=== PATIENT | female | born 1935 | race Caucasian/White ===

== ENCOUNTER 2017-04-06 16:42 | Inpatient (IN) | payer OTHER ==
[~2017-04-06] VITALS: Ht 149.9 cm; Wt 74.2 kg
--- NOTE | ~2017-04-06 | H ---
[facility] [place] [address] HISTORY AND PHYSICAL Name: EILEEN JEFFREY Room #: 206-P ADM IN M.R.#: [id number] Admission: 04/06/17 Attend Phys: Kristian Kim MD Discharge: Date of : 35 Report #: [id number] THIS REPORT FOR: //name// CC: Jaye Kim DATE OF SERVICE: 04/07/2017 ATTENDING PHYSICIAN: Dr. Kim. PRIMARY CARE PHYSICIAN: Dr. Jaye Angel. CHIEF COMPLAINT: Rash and weakness. HISTORY OF PRESENT ILLNESS: The patient is an 82-year-old female who has a history of a rash that she developed about 5 months ago. The rash is mainly in her chest, back and upper extremities. She also has associated weakness that developed in about the last 6 weeks. The weakness is mainly in her shoulder and upper arms as well as in her hip flexor. The weakness has been progressively getting worse. She has been seen by her primary care provider regarding the weakness and the rash about little over a month ago. She was started on prednisone. She initially was on a short prednisone taper and did not have any improvement and then her PCP put her on some higher dose prednisone that she just finished. She thinks that the steroids actually made her feel weaker and they really did not seem to improve the rash. She initially had some elevated muscle proteins as well and those did decrease with the steroids, but according to her records, the proteins are again elevated since being off the prednisone. She also has had progressive trouble swallowing. 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 This has mainly only affected her speech and she says her voice has been weak. Her last injection was in October of this year prior to developing the initial rash. After the rash started, she was told not to get any further injections as she was being evaluated for the rash. She said in the last 3 weeks, it feels like her throat has swollen to the point that she cannot eat or drink any solids or liquids. She feels like she chokes and the food does not go all the way down and then she coughs or vomits it right back up. She has lost at least 15 pounds. She has not been on any new medications. Because of the weakness, she was taken off her statin therapy and did not have much change in her symptoms. She went back to her primary care provider today who ended up sending her to the ER in [place], [place]. 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 The patient denies any history of autoimmune problems. She denies recent fevers. She reports having a very bad respiratory viral about a year ago with high fevers, but no recent fevers. She denies any chest pain or shortness of breath or any history of coronary artery disease. She is accompanied by her spouse and son who are both very concerned that she is [address] [address] HISTORY AND PHYSICAL Name: EILEEN JEFFREY Room #: 206-P [facility] IN .R.#: [id number] Admission: 04/06/17 Attend Phys: Kristian Kim MD Discharge: Date of : 35 Report #: [id number] progressively being getting weaker and unable to eat. PAST MEDICAL HISTORY: Arthritis, hypertension, hypothyroidism, hyperlipidemia, spastic dysphonia. PAST SURGICAL HISTORY: Appendectomy, cholecystectomy, fibroid tumors from the breast removed, multiple botox injections to vocal cords over the last 20 years. ALLERGIES: CLAVULANIC ACID AND SULFA, unknown reactions. HOME MEDICATIONS: Alprazolam 0.25 mg t.i.d. p.r.n., triamterene/hydrochlorothiazide 75/50 one tab daily, omeprazole 20 mg p.o. daily, estradiol 1 mg p.o. daily, levothyroxine 75 mcg daily. SOCIAL HISTORY: The patient is a never smoker. She does drink an occasional glass of wine. Denies any drug use. She lives at home with her spouse. FAMILY HISTORY: Her mother had rheumatoid arthritis, but she ended up dying of a heart attack. Her father from natural causes. REVIEW OF SYSTEMS: Twelve point review of systems was reviewed with the patient, otherwise negative unless stated in the HPI. PHYSICAL EXAMINATION: GENERAL: The patient is an alert, ill-appearing female, in no acute distress. VITAL SIGNS: Temperature 36.9, heart rate 79, respirations 17, blood pressure 131/78, oxygen 93% on room air. HEENT: PERRLA. Sclerae are nonicteric. Oral mucosa is pink and moist. NECK: Supple. She does have full range of motion. She does have some left-sided cervical lymphadenopathy, but lymph nodes are nontender. RESPIRATORY: Breath sounds are clear bilaterally. No wheezing or rhonchi. Breathing is nonlabored. ABDOMEN: Soft and nondistended with positive bowel sounds. Nontender. CARDIAC: Normal S1, S2. No murmurs, rubs or gallops. VASCULAR: 2+ bilateral lower extremity edema. Pedal pulses are 2+. NEUROLOGIC: The patient is alert and oriented x 3. Her voice is weak. She is able to follow commands. She does have significant weakness of her shoulder and upper arms. She is able to raise her hands up to 90 degrees at the elbow, but she is unable to lift her entire arm off the bed when using her shoulder bilaterally. She is unable to perform a straight leg raise, but she is able to bend her legs at the knee. Sensation is intact in all 4 extremities. SKIN: She does have erythematous rash what appears to be like a V neck pattern on her anterior chest. It is diffuse through her back and in the dorsal side of her both arms. There are also some patches of erythema on her both knees. There is a small dry wound on top of her left ear. There is also a small wound between her buttocks. [address] [address] HISTORY AND PHYSICAL Name: EILEEN JEFFREY Room #: 206-P ADM IN M.R.#: [id number] Admission: 04/06/17 Attend Phys: Kristian Kim MD Discharge: Date of : 35 Report #: [id number] [facility] DI[facility]NO[facility]: Blood work done at [place] showed a WBC of 10.8, hemoglobin 15.9, platelets 209. Sodium 131, potassium 3.0, BUN 34, creatinine 1.4, glucose 110. Magnesium 2.4, AST 134, ALT 64 and CK 861. Troponin 0.29 and BNP 4810. INR 1.15. Chest x-ray showed mild bibasilar subsegmental atelectasis, but no focal airspace consolidation. There was also some thoracic degenerative changes. ASSESSMENT AND PLAN: 1. Rash and weakness with elevated CRP. 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 She has not had any improvement with oral steroids. She was given a dose of IV Decadron en route to the hospital tonight. We will hold off on any further steroids and have Rheumatology evaluate and continue with symptomatic care, provide Benadryl p.r.n. 2. Dysphagia. This may also be due to myositis. We will have ENT evaluate and keep her on clear liquids only with aspiration precautions. 3. Elevated troponin. The patient is denying any chest pain. This may be the effect of myositis affecting her heart. She also has an elevated BNP, but does not show any signs of acute fluid overload. Cardiology is consulted. She did receive aspirin this evening, check an echo in the morning. Continue to monitor on telemetry. 4. Hypokalemia. This will be replaced. Follow labs. 5. Acute kidney injury versus chronic kidney disease. We do not have any baseline creatinine to compare. We will gently hydrate and follow labs. 6. Transaminitis. Again, this may be due to myositis. She does not have any abdominal pain. 7. Hypothyroidism. Hold home meds until swallow eval is complete. 8. Deep venous thrombosis prophylaxis. Place SCDs. We will continue to follow the patient closely throughout the hospitalization and make changes based on clinical status. <ELECTRONICALLY SIGNED> By: SHAWN Silverio 04/07/17 0942 0554 0659 SHAWN Silverio /nt
--- NOTE | ~2017-04-06 | EKG ---
[place] [address] [facility] [place] [address] ELECTROCARDIOGRAM REPORT Name: EILEEN JEFFREY Room #: 206-P ADM IN M.R.#: [id number] Admission: 04/06/17 Attend Phys: Kirstian Kim MD Discharge: Date of : 35 Report #: [id number] THIS REPORT FOR: //name// [facility] Test Date: 2017-04-15 Test Time: 06:12:55 Pat Name: EILEEN JEFFREY Department: Room: 206 P Gender: F Wholesale Account Manager: KRISSY : 1935 Requested By: Conor Guadalupe Order Number: [id number] MD: Conor Guadalupe Measurements Intervals [place] Rate: 79 P: 30 OK: 150 QRS: -4 QRSD: 79 T: -13 QT: 384 QTc: 441 Interpretive Statements Sinus rhythm Atrial premature complexes in couplets Borderline T abnormalities, diffuse leads Compared to ECG 04/14/2017 06:14:05 Atrial premature complex(es) now present T-wave abnormality still present Electronically Signed On 04-15-2017 9:06:00 DYED RAW STOCK BLOWER FEEDER by Conor Guadalupe [email or web address] <ELECTRONICALLY SIGNED> By: Conor Guadalupe MD 04/15/17905 1 1 Conor Guadalupe MD /EPI
--- NOTE | ~2017-04-06 | EKG ---
[address] [place] [address] ELECTROCARDIOGRAM REPORT Name: EILEEN JEFFREY Room #: 206-P ADM IN M.R.#: [id number] Admission: 04/06/17 Attend Phys: Kristian Kim MD Discharge: Date of : 35 Report #: [id number] THIS REPORT FOR: //name// [facility] Test Date: 2017-04-14 Test Time: 06:14:05 Pat Name: EILEEN JEFFREY Department: Room: 206 P Gender: F Paper Processing Machine Helper: KRISSY : 1935 Requested By: Conor Guadalupe Order Number: [id number] MD: Vinicius Mejia Measurements Intervals [place] Rate: 73 P: 16 MN: 154 QRS: 0 QRSD: 102 T: 3 QT: 334 QTc: 368 Interpretive Statements Sinus rhythm Borderline T wave abnormalities Compared to ECG 04/13/2017 10:18:53 T-wave abnormality now present Atrial fibrillation no longer present Electronically Signed On 04-14-2017 8:21:26 PRODUCTION OPERATIONS INSPECTOR by Vinicius Mejia [email or web address] <ELECTRONICALLY SIGNED> By: Vinicius Mejia MD, [facility] 04/14/17 0821 3 3 Vinicius Mejia MD, [facility] /EPI
--- NOTE | ~2017-04-06 | 2DMMODE ---
[facility] [address] [place] [address] 2 D/M-MODE ECHOCARDIOGRAM Name: RACHELEEILEEN Room #: 206-P ADM IN M.R.#: [id number] Admission: 04/06/17 Attend Phys: Kristian Kim, Discharge: Date of : 35 Date of Service: 04/07/17 1230 Report #: [id number] THIS REPORT FOR: //name// APPROVED REPORT Study performed: 04/07/2017 11:01:06 EXAM: Comprehensive 2D, Doppler, and color-flow Echocardiogram Patient Location: Bedside Room #: 206 Status: routine BSA: 1.59 HR: 75 bpm BP: 135/75 mmHg Other Information Study Quality: Adequate Indications Hypertension/HDD Elivated Troponin 2D Dimensions RVDd: 24.52 mm LVEF(%): 56.79 (>50%) IVSd: 11.79 (7-11mm) LVOT Diam: 16.93 (18-24mm) LVDd: 33.60 mm PWd: 11.32 (7-11mm) Ascending Ao: 27.66 (22-36mm) LVDs: 23.88 (25-40mm) Aortic Root: 27.99 mm IVC: 12.00 mm Sexton's LVEF: 56.79 % Volumes Left Atrial Volume (Systole) Single Plane 4CH: 36.77 mL Single Plane 2CH: 15.14 mL LA ESV Index: 16.00 mL/m2 Aortic Valve AoV Peak Bob.: 1.47 m/s AO Peak Gr.: 8.68 mmHg LVOT Max P.22 mmHg LVOT Max V: 1.14 m/s DARINEL Vmax: 1.74 cm2 Mitral Valve E/A Ratio: 0.6 MV Decel. Time: 248.58 ms [facility] [place] [address] 2 D/M-MODE ECHOCARDIOGRAM Name: EILEEN JEFFREY Room #: 206-P [facility] IN M.R.#: [id number] Admission: 04/06/17 Attend Phys: Kristian Kim, Discharge: Date of : 35 Date of Service: 04/07/17 1230 Report #: [id number] MV E Max Bob.: 0.72 m/s MV A Bob.: 1.19 m/s MV PHT: 72.09 ms IVRT: 143.02 ms Pulmonary Valve PV Peak Bob.: 0.92 m/s PV Peak Gr.: 3.36 mmHg Pulmonary Vein P Vein S: 0.61 m/s P Vein A: 0.33 m/s P Vein D: 0.42 m/s P Vein A Dur.: 96.9 msec P Vein S/D Ratio: 1.45 Tricuspid Valve TR Peak Bob.: 2.51 m/s TR Peak Gr.: 25.26 mmHg PA Pressure: 30.00 mmHg Left Ventricle The left ventricle is normal size. There is normal left ventricular wall thickness. The left ventricular systolic function is normal. The left ventricular ejection fraction is within the normal range. LVEF is 60-65%. Grade I - abnormal relaxation pattern. Right Ventricle The right ventricle is normal size. The right ventricular systolic function is normal. Atria The left atrium size is normal. The right atrium size is normal. Aortic Valve The aortic valve is normal in structure. Aortic valve is calcified. Trace aortic regurgitation. There is no aortic valvular stenosis. Mitral Valve The mitral valve is normal in structure. Trace mitral regurgitation. No evidence of mitral valve stenosis. Tricuspid Valve The tricuspid valve is normal in structure. There is trace tricuspid regurgitation. The right atrial pressure is estimated at mmHg. There is no pulmonary hypertension. [facility] [address] [place] [address] 2 D/M-MODE ECHOCARDIOGRAM Name: EILEEN JEFFREY Room #: 206-P ADM IN .R.#: [id number] Admission: 04/06/17 Attend Phys: Kristian Kim, Discharge: Date of : 35 Date of Service: 04/07/17 1230 Report #: [id number] Pulmonic Valve The pulmonary valve is normal in structure. There is no pulmonic valvular regurgitation. Great Vessels The aortic root is normal in size. IVC is normal in size and collapses >50% with inspiration. Pericardium There is no pericardial effusion. <Conclusion> The left ventricle is normal size. LVEF is 60-65%. Grade I - abnormal relaxation pattern. The right ventricle is normal size. The left atrium size is normal. The aortic valve is normal in structure. Aortic valve is calcified. There is no aortic valvular stenosis. Trace mitral regurgitation. There is trace tricuspid regurgitation. There is no pulmonary hypertension. There is no pericardial effusion. <ELECTRONICALLY SIGNED> By: Kyle Garcia MD, FACC 04/07/17 1230 1230 1230 Kyle Garcia MD, FACC /INF
--- NOTE | ~2017-04-06 | EKG ---
[address] [address] ELECTROCARDIOGRAM REPORT Name: RACHELEEILEEN Room #: 206-P ADM IN M.R.#: [id number] Admission: 04/06/17 Attend Phys: Kristian Kim MD Discharge: Date of : 35 Report #: [id number] THIS REPORT FOR: //name// [facility] Test Date: 2017-04-18 Test Time: 12:09:50 Pat Name: EILEEN JEFFREY Department: Room: 206 Gender: F Dispatcher Tow Truck: Jose FINNEGAN : 1935 Requested By: Conor Guadalupe Order Number: [id number] MD: Conor Guadalupe Measurements Intervals [place] Rate: 91 P: -6 LA: 110 QRS: 0 QRSD: 66 T: 238 QT: 278 QTc: 342 Interpretive Statements Sinus rhythm Borderline short LA interval Low voltage, extremity leads Abnormal T, consider ischemia, diffuse leads Compared to ECG 04/17/2017 09:28:24 T-wave abnormality now present Possible ischemia now present Electronically Signed On 04-18-2017 23:25:00 ICU REGISTERED NURSE by Conor Guadalupe [email or web address] <ELECTRONICALLY SIGNED> By: Conor Guadalupe MD 04/18/17 2325 1209 1209 Conor Guadalupe MD /EPI
--- NOTE | ~2017-04-06 | S ---
[facility] [place] [address] SURGICAL PATH RPT PROCEDURE Name: EILEEN JEFFREY Room #: 206-P ADM IN M.R.#: [id number] Admission: 04/06/17 Date of : 35 Discharge: Report #: [id number] Path Case #: [id number] PATHOLOGY REPORT COLLECTION DATE: 04/12/2017 RECEIVED DATE: 04/12/2017 SUBMITTING PHYS: Dr. Horace Barajas, OTHER PHYS: Dr. Kristian Angel ADDENDUM REPORT (Order Date: 04/15/2017 00:00) ADDENDUM COMMENT: Please see next page for scanned image of report submitted by [facility] ADDENDUM, senior billing consultant pathologist, Stefano Melchor M.D. (GA:dash; d/t: 04/15/2017) ELECTRONICALLY SIGNED BY: Brian Vargas M.D. DATE/TIME:04/15/2017 11:29 SPECIMEN(S) RECEIVED: A.Left deltoid muscle tissue for biopsy * * * * * * * * * * * * FINAL DIAGNOSIS: COMMENT: Please see next page for scanned image of report submitted by [employer] senior billing consultant pathologist, Stefano Melchor M.D. (GA:dash; d/t: 04/14/2017) PATHOLOGIST: Brian Vargas M.D. REPORT ELECTRONICALLY SIGNED BY: Brian Vargas M.D. DATE/TIME: 04/15/2017 08:37 * * * * * * * * * * * * GROSS PATHOLOGY: The specimen is received in fresh (on ice), labeled "Eileen Jeffrey, left deltoid". Received is a segment of red-oneil muscle measuring 1.0 x 1.0 x 0.5 cm in greatest dimensions. The specimen is submitted in 3 separate containers as follows: 1 - a portion of the specimen is wrapped in a saline moistened gauze 2 - a portion of the specimen is submitted in formalin 3 - a portion of the specimen is submitted in glutaraldehyde. The specimen is forwarded in its entirety to [facility] for further [address] [address] SURGICAL PATH RPT PROCEDURE Name: EILEEN JEFFREY Room #: 206-P ADM IN M.R.#: [id number] Admission: 04/06/17 Date of : 35 Discharge: Report #: [id number] Path Case #: [id number] processing with results to follow in an addendum. (CAA; 04/12/2017) CLINICAL HISTORY: Polymyositis INITIAL CPT CODE(S): 88987 Professional and Technical services performed by [facility], [address], [place] [address]. [facility] [address] [place] [address] PHONE: [phone] DIRECTOR: Abel Cid M.D. * * * END OF REPORT * * *
--- NOTE | ~2017-04-06 | HC ---
[facility] [place] [address] CONSULTATION Name: EILEEN JEFFREY Room #: 251-P DIS IN M.R.#: [id number] Admission: 04/06/17 Attend Phys: Kristian Kim MD Discharge: 04/25/17 Date of : 35 Report #: [id number] THIS REPORT FOR: //name// CC: Jaye Kim DATE OF SERVICE: 04/07/2017 HISTORY OF PRESENT ILLNESS: The patient is an 82-year-old white female who was admitted with a rash, which occurred approximately 5 months ago. She has had progressive weakness, primarily proximal, especially her shoulder girdle, and per my review of the records, she was diagnosed with dermatomyositis and has been given high dose corticosteroids. She thinks that the steroids actually made her feel weaker and they really did not seem to improve the rash. She also has had progressive trouble swallowing. She has had a history of spastic dysphonia, for which she was receiving Botox treatments for her vocal cords for the past 20 years. After the rash started, she was told not to get any further injections while she was being evaluated for the rash. She has had problems with increased weakness and difficulty with eating. We are seeing her in rehabilitation medicine consultation. PAST MEDICAL HISTORY: Includes arthritis, hypertension, hypothyroidism, hyperlipidemia, spastic dysphonia. PAST SURGICAL HISTORY: Includes appendectomy, cholecystectomy, fibroid tumors from the breast removed, multiple Botox injections to the vocal cords over the past 20 years. ALLERGIES: CLAVULANIC ACID AND SULFA, UNKNOWN REACTIONS. MEDICATIONS: Please see the full medication listing. SOCIAL HISTORY: She lives in a house with her . No steps. She does not utilize gait aids. Her granddaughter notes she has had difficulty moving both upper extremities with proximal upper extremity weakness. FAMILY HISTORY: Mother apparently had rheumatoid arthritis, but ended up dying of a heart attack. REVIEW OF SYSTEMS: No current complaints of chest pain, shortness of breath or abdominal discomfort. Complains of proximal muscle weakness, especially her upper extremities. Complains of decreased oral intake. Complains of overall generalized weakness. PHYSICAL EXAMINATION: GENERAL: An 82-year-old white female. [facility] [address] [place] [address] CONSULTATION Name: EILEEN JEFFREY Room #: 251-P [facility] IN .R.#: [id number] Admission: 04/06/17 Attend Phys: Kristian Kim MD Discharge: 04/25/17 Date of : 35 Report #: [id number] VITAL SIGNS: Temperature 97.3, pulse 79, respirations 17, blood pressure 150/88. SKIN: The patient has a diffuse confluent rash. It appears to be in a V-neck pattern over her anterior chest, diffuse throughout her back, dorsal side of both arms, patches of erythema on her knees. Facies appeared symmetric. MUSCULOSKELETAL: She has considerable proximal weakness of her shoulders and is unable to lift her arms more than about 60-70 degrees abduction bilaterally. She is unable to hold the arm up when it is passively ranged at the shoulder. Elbow flexion and extension is more of a grade 3+. In the lower extremities, her strength appears a little better at a grade 3+ to 4-. DTRs are trace to 1. ASSESSMENT: An 82-year-old white female with the following problem list: 1. Dermatomyositis per history. She has been on high dose steroids. 2. Significant proximal upper extremity greater than lower extremity weakness. Question if the high dose steroids could have contributed with a subsequent steroid myopathy component. 3. Elevated CRP. 4. Dysphagia. ENT to evaluate. Speech therapy is seeing her and she is currently on nectar-thick liquids. 5. Elevated troponin with Cardiology involved. 6. Acute renal insufficiency superimposed on chronic kidney disease. 7. Transaminitis. Note that this may be due to the myositis. 8. Hypothyroidism. 9. Spastic dysphonia, for which she has had multiple Botox injections for her vocal cords. PLAN: Therapy evaluations are underway. She does have significant proximal upper extremity greater than lower extremity weakness. Note that evaluation is underway with Rheumatology and ENT. We would consider Neurology evaluation as well. Again, I question if she has a steroid myopathy as a co-contributor along with the dermatomyositis. We will see how she does with the therapies. Insurance will need to be checked regarding rehab therapy options as she further medically stabilizes. <ELECTRONICALLY SIGNED> By: Marc Conrad MD 05/27/17 1408 1404 2221 Marc Conrad MD /nt
--- NOTE | ~2017-04-06 | EKG ---
[address] [address] ELECTROCARDIOGRAM REPORT Name: RACHELEEILEEN Room #: 206-P ADM IN M.R.#: [id number] Admission: 04/06/17 Attend Phys: Kristian Kim MD Discharge: Date of : 35 Report #: [id number] THIS REPORT FOR: //name// [facility] Test Date: 2017-04-07 Test Time: 08:33:23 Pat Name: EILEEN JEFFREY Department: Room: 206 P Gender: F Outside Event Sales Specialist: maria dolores : 1935 Requested By: Connie Kidd Order Number: [id number] MD: Conor Guadalupe Measurements Intervals [place] Rate: 124 P: 225 CO: 106 QRS: -36 QRSD: 86 T: 83 QT: 331 QTc: 476 Interpretive Statements Sinus or ectopic atrial tachycardia Left axis deviation Abnormal R-wave progression, late transition Borderline repolarization abnormality No previous ECG available for comparison Electronically Signed On 04-08-2017 8:17:27 BUSINESS CONTINUITY MANAGEMENT DIRECTOR by Conor Guadalupe [email or web address] <ELECTRONICALLY SIGNED> By: Conor Guadalupe MD 04/08/17816 2 2 Conor Guadalupe MD /HANK
--- NOTE | ~2017-04-06 | EKG ---
[address] [address] ELECTROCARDIOGRAM REPORT Name: EILEEN JEFFREY Room #: 206-P ADM IN M.R.#: [id number] Admission: 04/06/17 Attend Phys: Kristian Kim MD Discharge: Date of : 35 Report #: [id number] THIS REPORT FOR: //name// [facility] Test Date: 2017-04-13 Test Time: 10:18:53 Pat Name: EILEEN JEFFREY Department: Room: 206 P Gender: F Licensed Embalmer Supervisor: Jose FINNEGAN : 1935 Requested By: Conor Guadalupe Order Number: [id number] MD: Conor Guadalupe Measurements Intervals [place] Rate: 86 P: [place]: QRS: 5 QRSD: 87 T: 28 QT: 351 QTc: 420 Interpretive Statements Atrial fibrillation Abnormal R-wave progression, early transition Compared to ECG 04/11/2017 07:56:12 No significant changes Electronically Signed On 04-13-2017 15:10:37 LUMBER STICKER by Conor Guadalupe [email or web address] <ELECTRONICALLY SIGNED> By: Conor Guadalupe MD 04/13/17 1510 1018 1018 Conor Guadalupe MD /EPI
--- NOTE | ~2017-04-06 | EKG ---
[address] [address] ELECTROCARDIOGRAM REPORT Name: EILEEN JEFFREY Room #: 251- ADM IN M.R.#: [id number] Admission: 04/06/17 Attend Phys: Kristian Kim MD Discharge: Date of : 35 Report #: [id number] THIS REPORT FOR: //name// [facility] Test Date: 2017-04-23 Test Time: 08:24:27 Pat Name: EILEEN JEFFREY Department: Room: 251 Gender: F Land Leveler: IDA : 1935 Requested By: Kristian Kim Order Number: [id number] MD: Vinicius Mejia Measurements Intervals [place] Rate: 81 P: 61 UT: 177 QRS: 14 QRSD: 80 T: 228 QT: 323 QTc: 375 Interpretive Statements Sinus rhythm Low voltage, extremity leads Repol abnrm, diffuse leads Compared to ECG 04/18/2017 12:09:50 No significant change was found Electronically Signed On 04-24-2017 13:44:45 FOREIGN LANGUAGE TEACHER by Vinicius Mejia [email or web address] <ELECTRONICALLY SIGNED> By: Vinicius Mejia MD, [facility] 04/24/17 1344 0824 0824 Vinicius Mejia MD, [facility] /EPI
--- NOTE | ~2017-04-06 | EKG ---
[address] [address] ELECTROCARDIOGRAM REPORT Name: EILEEN JEFFREY Room #: 206-P ADM IN M.R.#: [id number] Admission: 04/06/17 Attend Phys: Kristian Kim MD Discharge: Date of : 35 Report #: [id number] THIS REPORT FOR: //name// [facility] Test Date: 2017-04-11 Test Time: 07:56:12 Pat Name: EILEEN JEFFREY Department: Room: 206 P Gender: F Pacs Administrator: IDA : 1935 Requested By: Kristian Kim Order Number: [id number] MD: Vinicius Mejia Measurements Intervals [place] Rate: 152 P: [place]: QRS: -7 QRSD: 73 T: 13 QT: 279 QTc: 444 Interpretive Statements Atrial fibrillation with rapid V-rate Borderline low voltage Compared to ECG 04/07/2017 08:33:23 Atrial fibrillation is now present Electronically Signed On 04-11-2017 10:17:55 BET TAKER by Vinicius Mejia [email or web address] <ELECTRONICALLY SIGNED> By: Vinicius Mejia MD, [facility] 04/11/17 1017 0756 0756 Vinicius Mejia MD, [facility] /EPI
--- NOTE | ~2017-04-06 | HC ---
[facility] [place] [address] CONSULTATION Name: EILEEN JEFFREY Room #: 206-P ADM IN M.R.#: [id number] Admission: 04/06/17 Attend Phys: Kristian Kim MD Discharge: Date of : 35 Report #: [id number] THIS REPORT FOR: //name// CC: Jaye Kim DATE OF SERVICE: 04/08/2017 CHIEF COMPLAINT: Gluteal and left ear ulceration. 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 She has been having persistent rash and then some muscle weakness over the last 6 months. She has had progressive weakness and is admitted here for neuro and rheumatological evaluation. She has been having some difficulty swallowing and not been able to eat or drink very much. She was noted to have a small ulceration along the fold of her left ear and on the gluteal region. I have been asked to see her with regard to wound care. PAST MEDICAL HISTORY: Positive for arthritis, hypertension, hypothyroidism, hyperlipidemia and spastic dysphonia. PAST SURGICAL HISTORY: She had had previous cholecystectomy, appendectomy, fibroid tumors. ALLERGIES: SULFA AND CLAVULANIC ACID. MEDICATIONS: Include alprazolam, triamterene/hydrochlorothiazide, omeprazole, estradiol, levothyroxine. SOCIAL HISTORY: She is a nonsmoker. She is , accompanied by her . No history of drug use. FAMILY HISTORY: Positive for history of rheumatoid arthritis in her mother. REVIEW OF SYSTEMS: CONSTITUTIONAL: The patient denies fever, chills or weight loss. NEUROLOGICAL: The patient complains of generalized weakness. Denies numbness, tingling. EYES: The patient denies visual changes, redness, or drainage. ENT: The patient denies earache, nasal drainage or sore throat. CARDIOVASCULAR: The patient denies chest pain, palpitations, diaphoresis. PULMONARY: The patient denies cough, shortness of breath. GASTROINTESTINAL: Does complain of difficulty swallowing. Denies nausea, vomiting or diarrhea. GENITOURINARY: The patient denies frequency or urgency of urination. Denies [facility] [address] [place] [address] CONSULTATION Name: EILEEN JEFFREY Room #: 206-P ADM IN ..#: [id number] Admission: 04/06/17 Attend Phys: Kristian Kim MD Discharge: Date of : 35 Report #: [id number] dysuria. DERMATOLOGIC: The patient complains of diffuse rash as well as is aware of these several small ulcerations that I discussed above. Other systems in a 12-point review of systems are negative. PHYSICAL EXAMINATION: VITAL SIGNS: At this time include temperature 36.4, pulse 66, respiratory rate of 18, blood pressure 132/70. GENERAL: This is a chronically ill-appearing female patient who appears to be in no obvious distress. HEENT: Normocephalic. Nose and throat are clear. Examination of the ears demonstrate a small ulceration along the postauricular fold on the left side. A little bit of fibrin present and is not overtly infected. NECK: Supple. LUNGS: Clear. HEART: Regular rhythm. ABDOMEN: Soft. Bowel sounds present. SKIN: Demonstrates diffuse maculopapular rash across the chest and some of the extremities. Gluteal region demonstrates stage 2 pressure ulcerations to the left gluteal region. Some rash noted there as well. NEUROLOGIC: The patient is alert. She is symmetrical. She has generalized weakness. LABORATORY DATA: Includes white blood cell count 7.7, hemoglobin of 13.6, hematocrit 39.7, platelet count 191,000. Sodium 140, potassium 3.0, chloride 106, CO2 21, BUN 23, creatinine 0.9, calcium is low at 7.4. TSH is 0.2. CLINICAL IMPRESSION: 1. Ulceration to the left ear, etiology indeterminate. 2. Stage II pressure ulcer in the left gluteal region. 3. 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 RECOMMENDATIONS: At this point in time, we will recommend a bordered foam to the gluteal ulceration. We will recommend turning and repositioning while in bed, do topical Polysporin ointment to the left ear ulceration. We are awaiting skin and muscle biopsies. She will obviously need rheumatological input for definitive care of dermatomyositis should that diagnosis be confirmed. She will need also aggressive nutritional support if she is not able to eat or drink on her own and may require a feeding tube. All findings and diagnoses discussed with family at bedside. I appreciate being asked to see her in consultation. <ELECTRONICALLY SIGNED> By: Durga Cano MD 04/12/17 1224 1647 0246 Durga Cano MD /nt
--- NOTE | ~2017-04-06 | EKG ---
[address] [address] ELECTROCARDIOGRAM REPORT Name: EILEEN JEFFREY Room #: 206-P ADM IN M.R.#: [id number] Admission: 04/06/17 Attend Phys: Kristian Kim MD Discharge: Date of : 35 Report #: [id number] THIS REPORT FOR: //name// [facility] Test Date: 2017-04-16 Test Time: 08:01:24 Pat Name: EILEEN JEFFREY Department: Room: 206 P Gender: F Prosthodontist: opal : 1935 Requested By: Conor Guadalupe Order Number: [id number] MD: Conor Guadalupe Measurements Intervals [place] Rate: 80 P: 33 [place]: 137 QRS: -12 QRSD: 77 T: 255 QT: 288 QTc: 333 Interpretive Statements Sinus rhythm Borderline repolarization abnormality Compared to ECG 04/15/2017 06:12:55 Atrial premature complex(es) no longer present T-wave abnormality no longer present Electronically Signed On 04-16-2017 8:31:42 FULFILLMENT ASSOCIATE by Conor Guadalupe [email or web address] <ELECTRONICALLY SIGNED> By: Conor Guadalupe MD 04/16/1731 0 0 Conor Guadalupe MD /EPI
--- NOTE | ~2017-04-06 | S ---
[facility] [place] [address] SURGICAL PATH RPT PROCEDURE Name: EILEEN JEFFREY Room #: 206-P ADM IN M.R.#: [id number] Admission: 04/06/17 Date of : 35 Discharge: Report #: [id number] Path Case #: [id number] PATHOLOGY REPORT COLLECTION DATE: 04/07/2017 RECEIVED DATE: 04/08/2017 SUBMITTING PHYS: Dr. Eyad Paulino OTHER PHYS: Dr. Kristian Kim ADDENDUM REPORT (Order Date: 04/12/2017 00:00) ADDENDUM COMMENT: Please see next page for scanned image of Direct Immunofluorescence report submitted by [facility] pathologist, Elliot Chambers M.D. (SAS:amj; d/t: 04/13/2017) ELECTRONICALLY SIGNED BY: Sarah Hall M.D., Dermatopathologist DATE/TIME:04/13/2017 17:14 SPECIMEN(S) RECEIVED: A.Left upper arm B.Left upper arm-dif * * * * * * * * * * * * FINAL DIAGNOSIS: A. Skin, left upper arm, H and E: - Superficial perivascular dermatitis, interface type (see comment). B. Skin, left upper arm, direct immunofluorescence: - An addendum report will be issued once the report is received from the [facility]. COMMENT: Specimen A from the "left upper arm" was evaluated with additional deeper levels as well as two special stains, both performed with appropriate positive controls, which yielded the following results: PAS-DF: Negative Alcian blue: Positive for dermal mucin Based on the H and E findings, a connective tissue disease such as dermatomyositis versus possibly lupus erythematosus is favored. Please correlate clinically as well as with the results of the direct immunofluorescence. An addendum report will be issued on the findings on direct immunofluorescence of specimen B from the "left upper arm" once the report is received from the [facility]. [facility] [address] [place] [address] SURGICAL PATH RPT PROCEDURE Name: EILEEN JEFFREY Room #: [facility] ADM IN ..#: [id number] Admission: 04/06/17 Date of : 35 Discharge: Report #: [id number] Path Case #: [id number] (SAS:marisa/meryl; 04/13/2017) PATHOLOGIST: Sarah Hall M.D., Dermatopathologist REPORT ELECTRONICALLY SIGNED BY: Sarah Hall M.D., Dermatopathologist DATE/TIME: 04/13/2017 11:25 * * * * * * * * * * * * MICROSCOPIC DESCRIPTION: A: Multiple levels of a bisected punch biopsy of skin show overlying scale crust. The epidermis is atrophic and shows dyskeratotic keratinocytes along the dermal-epidermal junction. There is a superficial perivascular lymphohistiocytic inflammatory cell infiltrate. The dermis appears edematous with marked solar elastosis as well as interstitial dermal mucin. A PAS-D stain for fungus was performed and is negative. An Alcian blue stain was performed and does confirm the presence of interstitial dermal mucin. GROSS PATHOLOGY: A. Received in formalin labeled "Eileen Jeffrey, left upper arm," is a punch biopsy measuring 0.4 x 0.2 x 0.2 cm in greatest dimensions. The epidermal surface is goetz-oneil with no obvious lesion. The margin is inked, and the specimen is bisected and entirely submitted in cassette A1. B. Received in Jose's media, labeled "Eileen Jeffrey, left upper arm", is a punch biopsy of skin measuring 0.2 x 0.2 x 0.2 cm in maximum dimensions. The specimen is forwarded in its entirety for direct immunofluorescence studies. (SDY; 04/08/2017) CLINICAL HISTORY: Rash, weakness Rule out dermatomyosis INITIAL CPT CODE(S): A; 06159, 52091, 51422 B; 05526, 47359, 89702, 42344, 63594 Professional services performed by [facility], [address] [place] [address]. Technical services performed by [facility] at [address] [place] [address]. [facility] [address] [place] [address] PHONE: [phone] DIRECTOR: Abel Cid M.D. [address] [address] SURGICAL PATH RPT PROCEDURE Name: EILEEN JEFFREY Room #: 206-P ADM IN M.R.#: [id number] Admission: 04/06/17 Date of : 35 Discharge: Report #: [id number] Path Case #: [id number] * * * END OF REPORT * * *
--- NOTE | ~2017-04-06 | HC ---
[facility] [place] [address] CONSULTATION Name: EILEEN JEFFREY Room #: 206-P ADM IN M.R.#: [id number] Admission: 04/06/17 Attend Phys: Kristian Kim MD Discharge: Date of : 35 Report #: [id number] THIS REPORT FOR: //name// CC: Jaye Stanley Kim DATE OF SERVICE: 04/08/2017 REFERRING PROVIDER: Juan Khan MD. REASON FOR CONSULTATION: Dermatomyositis, request for muscle biopsy. HISTORY OF PRESENT ILLNESS: The patient is an 82-year-old female who initially presented to a hospital in [place], [place] secondary to a 5 month history of rash and weakness that has progressively worsened. Recently, she has been having difficulty swallowing as well as moving her extremities and upon presentation to the outside hospital, was noted to have an elevated troponin of 0.48. The patient was extremely tachycardic and as such was transferred here to [facility] for further evaluation. The patient has been treated with high dose steroids for her reported diagnosis of dermatomyositis, which she states helped to some degree. As she is being seen by Rheumatology, a request was made for a muscle biopsy for pathologic diagnosis. PAST MEDICAL HISTORY: Hypertension, GERD, hypothyroidism, anxiety, spastic dysphonia and arthritis. PAST SURGICAL HISTORY: She has undergone hysterectomy, appendectomy, cholecystectomy, fibroid tumor removal from her breast as well as multiple Botox injections to her vocal cords. MEDICATIONS: Synthroid, Xanax, Estrace, omeprazole, triamterene/hydrochlorothiazide. ALLERGIES: CLAVULANIC ACID AND SULFA. FAMILY HISTORY: Reviewed and noncontributory. SOCIAL HISTORY: The patient denies tobacco and illicit drug use. Drinks alcohol only rarely and never to excess. REVIEW OF SYSTEMS: GENERAL: The patient denies nocturnal fevers or chills. HEENT: No change in vision, change in hearing. NECK: No swelling or difficulty swallowing. HEART: No chest pain or palpitations. LUNGS: No cough or shortness of breath. [facility] [address] [place] [address] CONSULTATION Name: EILEEN JEFFREY Room #: 206-[facility] IN M.R.#: [id number] Admission: 04/06/17 Attend Phys: Kristian Kim MD Discharge: Date of : 35 Report #: [id number] ABDOMEN: No nausea, no vomiting. GENITOURINARY: No dysuria or hematuria. ENDOCRINE: No polyuria, polydipsia. HEMATOLOGIC: No history of bleeding or easy bruising. EXTREMITIES: Significant history of weakness, but no limited range of motion. NEUROLOGIC: No history of syncope or near syncopal episodes. SKIN AND INTEGUMENT: No prior history of abnormal lesions or moles. PSYCHIATRIC: Significant for anxiety, but no depression. PHYSICAL EXAMINATION: VITAL SIGNS: Temperature 97.8, pulse 69, respirations 18, blood pressure 134/83. She stands 4 feet 11 inches tall and weighs 147 pounds. Generally, arousable, in no acute distress. HEENT: Normocephalic, atraumatic. Pupils are equal, round, reactive to light. NECK: Supple, without lymphadenopathy. Trachea is midline. HEART: Tachycardic, but regular rhythm. LUNGS: Clear to auscultation bilaterally. ABDOMEN: Soft, nontender, nondistended. GENITOURINARY: Normal external female genitalia. EXTREMITIES: No clubbing, cyanosis or edema. NEUROLOGIC: Cranial nerves 2-12 are grossly intact. PSYCHIATRIC: Normal mood and affect. SKIN AND INTEGUMENT: Stage II pressure ulcer to the left gluteal region. LABORATORY AND X-RAY DATA: CBC showed a white blood cell count of 7.7 thousand, hemoglobin 13.6, platelets 191,000. Creatinine is 0.9, albumin was 2.2. Liver function, enzymes normal. BNP was elevated at 5698. Echocardiogram shows an ejection fraction of 60-65%, swallow study shows laryngeal penetration and aspiration. ASSESSMENT AND PLAN: An 82-year-old female with a concern for possible dermatomyositis with worsening rash and progressive weakness as well as overt dysphagia for which she failed her swallow test. The patient is being evaluated by Cardiology for an elevated troponin. The patient is currently n.p.o. due to her failing the swallow test and a request was made for muscle biopsy at this time. PLAN: We will plan to proceed with muscle biopsy on Tuesday in the operating room as it is a holiday weekend and this is not an emergent case. In addition, the patient would likely benefit from a PEG tube placement for enteral nutrition. However, she would like to hold off at the present time if at all possible. I think it is reasonable to obtain a diagnosis from the muscle biopsy prior to proceeding with a PEG tube if warranted at that time, once appropriate therapy has been initiated for underlying disorder. [facility] [address] [place] [address] CONSULTATION Name: EILEEN JEFFREY Room #: 206-P ADM IN M.R.#: [id number] Admission: 04/06/17 Attend Phys: Kristian Kim MD Discharge: Date of : 35 Report #: [id number] I sincerely appreciate this consult. We will follow along and leave any further recommendations in the patient's chart as appropriate. <ELECTRONICALLY SIGNED> By: Ceasar Romero MD, FACS 04/09/17 1036 06 0350 Ceasar Romero MD, FACS /nt
--- NOTE | ~2017-04-06 | EKG ---
[address] [address] ELECTROCARDIOGRAM REPORT Name: RACHELEEILEEN Room #: 206-P ADM IN M.R.#: [id number] Admission: 04/06/17 Attend Phys: Kristian Kim MD Discharge: Date of : 35 Report #: [id number] THIS REPORT FOR: //name// [facility] Test Date: 2017-04-17 Test Time: 09:28:24 Pat Name: EILEEN JEFFREY Department: Room: 206 P Gender: F Hooker Laster: JOHN : 1935 Requested By: Conor Guadalupe Order Number: [id number] MD: Conor Guadalupe Measurements Intervals [place] Rate: 83 P: 15 PA: 130 QRS: -13 QRSD: 72 T: 236 QT: 286 QTc: 336 Interpretive Statements Sinus rhythm Borderline low voltage, extremity leads Borderline repolarization abnormality Compared to ECG 04/16/2017 08:01:24 No significant changes Electronically Signed On 04-17-2017 15:53:25 ACCOUNTS RECEIVABLE COORDINATOR by Conor Guadalupe [email or web address] <ELECTRONICALLY SIGNED> By: Conor Guadalupe MD 04/17/17 1553 0928 0928 Conor Guadalupe MD /HANK
--- NOTE | ~2017-04-06 | HC ---
[facility] [place] [address] CONSULTATION Name: EILEEN JEFFREY Room #: 251-P ADM IN M.R.#: [id number] Admission: 04/06/17 Attend Phys: Kristian Kim MD Discharge: Date of : 35 Report #: [id number] THIS REPORT FOR: //name// CC: Jaye Kim REASON FOR CONSULTATION: I was asked to evaluate concerning respiratory failure with bilateral pulmonary infiltrates in the setting of dermatomyositis and immunosuppression. HISTORY OF PRESENT ILLNESS: The patient was an 82-year-old admitted on 04/06/2017 who has had ongoing rash for the last 6 months. This has been associated with generalized weakness. She has been on prednisone for the rash, on and off since September. Subsequently, has not improved and has had progressive weakness. In addition, she has had some difficulty swallowing with a diagnosis of spastic dysphonia in the past that she had received Botox injections for. She had a muscle biopsy performed and was seen by Rheumatology who diagnosed dermatomyositis. Since the diagnosis, she has been placed on immunoglobulin. She has received several infusions. She had a video swallow, which showed aspiration risk and a PEG tube was recently placed. In addition, she has had atrial fibrillation and blood loss anemia. She was treated for Enterobacter urinary tract infection with ceftazidime. She has been on that for the last 3 days. This morning she developed acute onset of shortness of breath associated with cough. She is very weak. No fever. Hemodynamically has remained stable. Went from room air now on 30% Ventimask. ABGs on 3 liters showed a pO2 of 48, pCO2 of 25, pH 7.5, lactate of 3.3. She is unable to cough up any sputum. She is incontinent of dark stool. REVIEW OF SYSTEMS: There has been no hemoptysis and no blood from her PEG site. ALLERGIES: AUGMENTIN, SULFA. MEDICATIONS: Ceftazidime. PAST MEDICAL HISTORY: Arthritis, hypertension, hypothyroidism, hyperlipidemia, spastic dysphonia, appendectomy, cholecystectomy, fibrocystic breast disease. FAMILY HISTORY: Noncontributory. SOCIAL HISTORY: Nonsmoker, no significant alcohol intake. REVIEW OF SYSTEMS: Negative other than as described above. She has had a left upper arm muscle biopsy. Also has indwelling Mello catheter, PEG tube and a left upper extremity PICC. PHYSICAL EXAMINATION: VITAL SIGNS: Afebrile, blood pressure stable. She is on a 30% Ventimask. [facility] [address] [place] [address] CONSULTATION Name: EILEEN JEFFREY Room #: [address] [place] [address] [place] [facility]#: [id number] Admission: 04/06/17 Attend Phys: Kristian Kim MD Discharge: Date of : 35 Report #: [id number] GENERAL: She was very weak, difficulty speaking, pale and 2+ peripheral edema. Thin skin with multiple ecchymoses. She was incontinent of dark soft stool. Indwelling Mello catheter was unremarkable. Left upper extremity PICC was unremarkable. CHEST: Coarse bilaterally. No definite consolidation. HEART: Regular without murmur. ABDOMEN: Soft. PEG site was unremarkable. No hepatosplenomegaly or mass. LABORATORY STUDIES: Sodium 138, potassium 3.9, bicarbonate 24, creatinine 0.8. Hemoglobin 7.2, platelet count was 80,000, white count 13.8. Procalcitonin 0.65. Blood cultures are pending. CT scan of the chest showed bilateral infiltrates both upper lobe and lower lobe with small effusions. Also had pulmonary emboli in the right lower lobe. 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 She has had a significant change in condition now with bilateral pulmonary infiltrates and pulmonary embolism. She has anemia and thrombocytopenia. I am suspecting she may have aspirated in addition to her pulmonary emboli. RECOMMENDATIONS: We will broaden her antibiotic coverage for healthcare-associated aspiration pneumonia. We will also cover the Enterobacter in her urine. The attending and family are discussing overall plan of care whether we move her to the Intensive Care Unit or not. We will initiate her antibiotic therapy pending these discussions. She will have cultures of blood and try and obtain some sputum culture as well. <ELECTRONICALLY SIGNED> By: Avel Arreguin MD 04/24/17 1124 1158 1722 Avel Arreguin MD /nt
[2017-04-07 00:03] LABS: CHOLESTEROL 200 mg/dL (<200); HDL CHOLESTEROL 54 mg/dL (>40); LDL CHOLESTEROL 127 mg/dL (<100); TC:HDL 3.7 Ratio (Not establshd); TRIGLYCERIDE 98 mg/dL (<150); TROPONIN-I 0.48 ng/mL (<0.06); VLDL 20 mg/dL (<40)
[2017-04-07 00:21] VITALS: BP 131/78
[2017-04-07 02:26] LABS: SERUM ASSESSMENT Clear
[2017-04-07 03:33] VITALS: BP 136/78
[2017-04-07] MEDS ORDERED: SYNTHROID75 MCG PO (04:52)
[2017-04-07] MEDS ORDERED: XANAX 0.25 MG0.25 MG PO (04:58)
[2017-04-07] MEDS ORDERED: ESTRADIOL 1 MG T1 M1 PO (05:02)
[2017-04-07] MEDS ORDERED: OMEPRAZOLE 20 M20 M1 PO (05:06)
[2017-04-07] MEDS ORDERED: TRIAMTERENE-HC1 EAC3 PO (05:11)
[2017-04-07 05:32] LABS: HEMATOCRIT 39.7 % (37.0-47.0); HEMOGLOBIN 13.6 gm/dL (12.0-15.0); MCH 30.5 pg (26.0-34.0); MCHC 34.1 g/dL (28.0-37.0); MCV 89.4 fL (80.0-100.0); RBC 4.45 mil/uL (4.20-5.00); RDW 14.1 % (10.5-14.5); WBC 7.7 thou/uL (4.0-11.0)
[2017-04-07 05:44] LABS: ALBUMIN 2.2 g/dL (3.4-5.0); CALCIUM 7.6 mg/dL (8.5-10.1); CREATININE 1.1 mg/dL (0.6-1.0); POTASSIUM 3.6 mmol/L (3.5-5.1); TOTAL BILIRUBIN 0.8 mg/dL (<0.1-1.0); TROPONIN-I 0.34 ng/mL (<0.06)
[2017-04-07 07:37] VITALS: BP 135/75
[2017-04-07] MEDS ORDERED: ZYRTEC10 MG PO (11:17)
[2017-04-07] MEDS ORDERED: CORTISPORIN OTI10 ML OTIC (11:30)
[2017-04-07] MEDS ORDERED: IBUPROFEN 200200 M1 PO (11:32)
[2017-04-07 11:52] VITALS: BP 150/88
[2017-04-07 15:27] VITALS: BP 141/74
[2017-04-07 19:21] VITALS: BP 120/60
[2017-04-08 03:35] VITALS: BP 130/76
[2017-04-08 03:51] LABS: CALCIUM 7.4 mg/dL (8.5-10.1); CREATININE 0.9 mg/dL (0.6-1.0); MAGNESIUM 1.9 mg/dL (1.8-2.4)
[2017-04-08 08:07] VITALS: BP 140/86
[2017-04-08 12:22] VITALS: BP 137/77
[2017-04-08 15:37] VITALS: BP 132/70
[2017-04-08 19:15] VITALS: BP 134/83
[2017-04-09 03:35] LABS: HEMATOCRIT 39.4 % (37.0-47.0); HEMOGLOBIN 13.5 gm/dL (12.0-15.0); MCH 31.2 pg (26.0-34.0); MCHC 34.2 g/dL (28.0-37.0); MCV 91.1 fL (80.0-100.0); PLATELET COUNT 177 thou/uL (150-400); RBC 4.33 mil/uL (4.20-5.00); RDW 14.5 % (10.5-14.5); WBC 10.3 thou/uL (4.0-11.0)
[2017-04-09 03:47] VITALS: BP 118/67
[2017-04-09 03:48] LABS: CALCIUM 7.1 mg/dL (8.5-10.1); CREATININE 0.9 mg/dL (0.6-1.0); POTASSIUM 3.1 mmol/L (3.5-5.1)
[2017-04-09 04:28] LABS: ATYPICAL LYMPHS 1 %
[2017-04-09 07:50] VITALS: BP 116/66
[2017-04-09 15:35] VITALS: BP 128/66
[2017-04-09 19:39] VITALS: BP 139/71
[2017-04-09 23:50] VITALS: BP 143/107
[2017-04-10 04:50] VITALS: BP 113/72
[2017-04-10 05:14] LABS: CALCIUM 8.2 mg/dL (8.5-10.1); CREATININE 1.1 mg/dL (0.6-1.0); POTASSIUM 4.2 mmol/L (3.5-5.1)
[2017-04-10 10:15] VITALS: BP 122/96
[2017-04-10 12:07] LABS: ANA INTERPRETATION Negative (())
[2017-04-10 19:43] VITALS: BP 109/56
[2017-04-11 04:08] VITALS: BP 106/53
[2017-04-11 08:01] LABS: HEMATOCRIT 43.6 % (37.0-47.0); HEMOGLOBIN 14.6 gm/dL (12.0-15.0); MCH 30.8 pg (26.0-34.0); MCHC 33.4 g/dL (28.0-37.0); RBC 4.74 mil/uL (4.20-5.00); RDW 15.4 % (10.5-14.5); WBC 15.1 thou/uL (4.0-11.0)
[2017-04-11 08:07] LABS: CALCIUM 8.4 mg/dL (8.5-10.1); CREATININE 1.2 mg/dL (0.6-1.0); POTASSIUM 4.1 mmol/L (3.5-5.1)
[2017-04-11 08:15] LABS: ALBUMIN 2.3 g/dL (3.4-5.0); TOTAL BILIRUBIN 0.8 mg/dL (<0.1-1.0); TOTAL PROTEIN 5.4 g/dL (6.4-8.2); TROPONIN-I 0.33 ng/mL (<0.06)
[2017-04-11 09:00] VITALS: BP 103/67
[2017-04-11 11:25] VITALS: BP 91/47
[2017-04-11 15:40] VITALS: BP 128/64
[2017-04-11 19:24] VITALS: BP 119/76
[2017-04-12 03:25] VITALS: BP 111/63
[2017-04-12 07:00] VITALS: BP 111/63
[2017-04-12 08:28] LABS: HEMATOCRIT 40.6 % (37.0-47.0); HEMOGLOBIN 13.7 gm/dL (12.0-15.0); MCH 30.3 pg (26.0-34.0); MCHC 33.7 g/dL (28.0-37.0); MCV 89.9 fL (80.0-100.0); PLATELET COUNT 168 thou/uL (150-400); RBC 4.52 mil/uL (4.20-5.00); RDW 15.3 % (10.5-14.5)
[2017-04-12 08:37] LABS: CALCIUM 8.2 mg/dL (8.5-10.1); CREATININE 1.1 mg/dL (0.6-1.0); POTASSIUM 4.2 mmol/L (3.5-5.1)
[2017-04-12 11:09] LABS: ANTI-DNA SCREEN <1 IU/mL (0-9); ANTI-RNP <0.2 AI (0.0-0.9)
[2017-04-12 12:27] LABS: ANISOCYTOSIS 1+; METAMYELOCYTES 1 %
[2017-04-12 16:00] VITALS: BP 116/61
[2017-04-12 19:39] VITALS: BP 114/89
[2017-04-13] VITALS (8 sets, daily range): BP systolic 108–141; BP diastolic 70–83
[2017-04-13 04:14] LABS: HEMATOCRIT 39.7 % (37.0-47.0); HEMOGLOBIN 13.4 gm/dL (12.0-15.0); MCH 30.8 pg (26.0-34.0); MCHC 33.7 g/dL (28.0-37.0); MCV 91.5 fL (80.0-100.0); RBC 4.34 mil/uL (4.20-5.00); RDW 15.6 % (10.5-14.5); WBC 16.2 thou/uL (4.0-11.0)
[2017-04-13 04:22] LABS: CALCIUM 8.4 mg/dL (8.5-10.1); CREATININE 1.1 mg/dL (0.6-1.0); POTASSIUM 4.3 mmol/L (3.5-5.1)
[2017-04-14 04:23] VITALS: BP 127/73
[2017-04-14 07:39] VITALS: BP 133/78
[2017-04-14 11:34] VITALS: BP 143/84
[2017-04-14 15:13] VITALS: BP 137/85
[2017-04-14 20:27] VITALS: BP 170/83
[2017-04-15 04:41] VITALS: BP 147/108
[2017-04-15 08:00] VITALS: BP 156/89
[2017-04-15 12:00] VITALS: BP 157/94
[2017-04-15 15:54] VITALS: BP 142/88
[2017-04-15 19:37] VITALS: BP 171/84
[2017-04-16 00:06] VITALS: BP 165/76
[2017-04-16 04:03] VITALS: BP 141/77
[2017-04-16 05:21] LABS: HEMATOCRIT 37.8 % (37.0-47.0); HEMOGLOBIN 12.6 gm/dL (12.0-15.0); MCH 30.7 pg (26.0-34.0); MCHC 33.4 g/dL (28.0-37.0); RBC 4.11 mil/uL (4.20-5.00); RDW 15.2 % (10.5-14.5); WBC 13.6 thou/uL (4.0-11.0)
[2017-04-16 05:32] LABS: CALCIUM 7.5 mg/dL (8.5-10.1); CREATININE 0.9 mg/dL (0.6-1.0); POTASSIUM 3.5 mmol/L (3.5-5.1)
[2017-04-16 08:07] VITALS: BP 139/79
[2017-04-16 11:40] VITALS: BP 156/76
[2017-04-16 16:39] VITALS: BP 148/81
[2017-04-16 19:18] VITALS: BP 140/64
[2017-04-17 04:29] LABS: CALCIUM 7.4 mg/dL (8.5-10.1); CREATININE 0.8 mg/dL (0.6-1.0); HEMATOCRIT 35.8 % (37.0-47.0); HEMOGLOBIN 11.9 gm/dL (12.0-15.0); MCH 31.2 pg (26.0-34.0); MCHC 33.4 g/dL (28.0-37.0); MCV 93.6 fL (80.0-100.0); POTASSIUM 3.9 mmol/L (3.5-5.1); RBC 3.82 mil/uL (4.20-5.00); WBC 14.5 thou/uL (4.0-11.0)
[2017-04-17 04:59] VITALS: BP 131/61
[2017-04-17 07:20] VITALS: BP 122/55
[2017-04-17 12:00] VITALS: BP 124/66
[2017-04-17 16:50] VITALS: BP 128/61
[2017-04-17 20:10] VITALS: BP 127/68
[2017-04-18 04:45] VITALS: BP 123/52
[2017-04-18 05:10] LABS: HEMOGLOBIN 11.6 gm/dL (12.0-15.0); MCH 30.9 pg (26.0-34.0); MCHC 33.2 g/dL (28.0-37.0); MCV 93.2 fL (80.0-100.0); RBC 3.75 mil/uL (4.20-5.00); RDW 15.1 % (10.5-14.5); WBC 18.7 thou/uL (4.0-11.0)
[2017-04-18 05:17] LABS: CALCIUM 7.3 mg/dL (8.5-10.1); CREATININE 0.8 mg/dL (0.6-1.0)
[2017-04-18 07:30] VITALS: BP 177/87
[2017-04-18 07:40] VITALS: BP 115/67
[2017-04-18 11:00] VITALS: BP 121/63
[2017-04-18 14:59] LABS: URINE BILIRUBIN NEGATIVE (Negative); URINE BLOOD NEGATIVE (Negative); URINE CLARITY CLEAR; URINE COLOR YELLOW; URINE GLUCOSE-RANDOM* NEGATIVE (Negative); URINE KETONES NEGATIVE (Negative); URINE NITRITE-REFLEX NEGATIVE (Negative); URINE PROTEIN (DIPSTICK) TRACE (Negative)
[2017-04-18 15:00] LABS: URINE LEUKOCYTES-REFLEX TRACE (Negative)
[2017-04-19 04:09] VITALS: BP 116/69
[2017-04-19 05:40] LABS: HEMATOCRIT 33.4 % (37.0-47.0); HEMOGLOBIN 11.1 gm/dL (12.0-15.0); MCH 31.1 pg (26.0-34.0); MCHC 33.3 g/dL (28.0-37.0); MCV 93.4 fL (80.0-100.0); RBC 3.58 mil/uL (4.20-5.00); RDW 15.4 % (10.5-14.5); WBC 17.7 thou/uL (4.0-11.0)
[2017-04-19 05:52] LABS: CALCIUM 7.2 mg/dL (8.5-10.1); CREATININE 0.9 mg/dL (0.6-1.0); POTASSIUM 3.8 mmol/L (3.5-5.1)
[2017-04-19 08:38] VITALS: BP 125/60
[2017-04-19 12:10] VITALS: BP 113/61
[2017-04-19 15:57] VITALS: BP 109/45
[2017-04-19 20:20] VITALS: BP 101/42
[2017-04-20 00:30] VITALS: BP 120/51
[2017-04-20 06:00] VITALS: BP 131/59
[2017-04-20 08:02] VITALS: BP 100/48
[2017-04-20 15:00] LABS: HEMATOCRIT 29.9 % (37.0-47.0); HEMOGLOBIN 10.2 gm/dL (12.0-15.0); MCH 31.1 pg (26.0-34.0); MCHC 33.9 g/dL (28.0-37.0); MCV 91.6 fL (80.0-100.0); RBC 3.27 mil/uL (4.20-5.00); RDW 14.9 % (10.5-14.5); WBC 16.3 thou/uL (4.0-11.0)
[2017-04-20 15:08] LABS: CALCIUM 7.2 mg/dL (8.5-10.1); CREATININE 0.9 mg/dL (0.6-1.0); MAGNESIUM 2.2 mg/dL (1.8-2.4); POTASSIUM 3.5 mmol/L (3.5-5.1)
[2017-04-20 16:30] VITALS: BP 124/68
[2017-04-20 20:21] VITALS: BP 117/71
[2017-04-21 06:29] LABS: HEMATOCRIT 27.6 % (37.0-47.0); HEMOGLOBIN 9.3 gm/dL (12.0-15.0); MCHC 33.8 g/dL (28.0-37.0); MCV 91.8 fL (80.0-100.0); RBC 3.01 mil/uL (4.20-5.00); RDW 14.7 % (10.5-14.5); WBC 13.4 thou/uL (4.0-11.0)
[2017-04-21 06:30] LABS: CALCIUM 6.7 mg/dL (8.5-10.1); CREATININE 0.7 mg/dL (0.6-1.0); POTASSIUM 3.6 mmol/L (3.5-5.1)
[2017-04-21 08:54] VITALS: BP 127/59
[2017-04-21 13:05] VITALS: BP 123/74
[2017-04-21 15:02] VITALS: BP 117/60
[2017-04-21 19:57] VITALS: BP 119/47
[2017-04-22 04:31] VITALS: BP 130/54
[2017-04-22 05:56] LABS: HEMATOCRIT 22.5 % (37.0-47.0); HEMOGLOBIN 7.8 gm/dL (12.0-15.0); MCH 31.6 pg (26.0-34.0); MCHC 34.5 g/dL (28.0-37.0); MCV 91.5 fL (80.0-100.0); RBC 2.46 mil/uL (4.20-5.00); RDW 14.7 % (10.5-14.5); WBC 10.1 thou/uL (4.0-11.0)
[2017-04-22 06:05] LABS: CALCIUM 6.8 mg/dL (8.5-10.1); CREATININE 0.7 mg/dL (0.6-1.0); POTASSIUM 3.2 mmol/L (3.5-5.1)
[2017-04-22 15:54] VITALS: BP 121/61
[2017-04-22 19:56] VITALS: BP 120/66
[2017-04-23] VITALS (14 sets, daily range): BP systolic 107–140; BP diastolic 42–67
[2017-04-23 06:39] LABS: HEMATOCRIT 21.2 % (37.0-47.0); HEMOGLOBIN 7.2 gm/dL (12.0-15.0); MCH 31.4 pg (26.0-34.0); MCHC 33.9 g/dL (28.0-37.0); MCV 92.7 fL (80.0-100.0); RBC 2.28 mil/uL (4.20-5.00); RDW 14.8 % (10.5-14.5); WBC 13.8 thou/uL (4.0-11.0)
[2017-04-23 06:48] LABS: CALCIUM 6.9 mg/dL (8.5-10.1); CREATININE 0.8 mg/dL (0.6-1.0); MAGNESIUM 1.9 mg/dL (1.8-2.4); POTASSIUM 3.9 mmol/L (3.5-5.1)
[2017-04-23 08:18] LABS: BE(vivo) 2.4 mmol/L (-2 to +3); HCO3 24.1 mmol/L (22.0-26.0); PCO2 25.8 mmHg (35.0-45.0); pH 7.588 (7.360-7.450); sO2 90.5 % (92.0-98.0)
[2017-04-23 17:30] LABS: CALCIUM 6.9 mg/dL (8.5-10.1); CREATININE 0.8 mg/dL (0.6-1.0); POTASSIUM 3.3 mmol/L (3.5-5.1)
[2017-04-24] VITALS (28 sets, daily range): BP systolic 91–151; BP diastolic 41–117
[2017-04-24 03:08] LABS: ALBUMIN 0.9 g/dL (3.4-5.0); CALCIUM 7.1 mg/dL (8.5-10.1); CREATININE 0.7 mg/dL (0.6-1.0); TOTAL BILIRUBIN 0.5 mg/dL (<0.1-1.0); TOTAL PROTEIN 6.2 g/dL (6.4-8.2)
[2017-04-24 03:12] LABS: POTASSIUM 4.4 mmol/L (3.5-5.1)
[2017-04-24 05:59] LABS: BASOPHILS 0.1 % (0.0-2.0); HEMOGLOBIN 6.7 gm/dL (12.0-15.0); MCHC 33.5 g/dL (28.0-37.0); RBC 2.15 mil/uL (4.20-5.00)
[2017-04-24 06:01] LABS: ABSOLUTE NEUTROPHILS 12.4 thou/uL (1.4-8.2); LYMPHOCYTES 3.2 % (24.0-44.0); MCV 92.5 fL (80.0-100.0); MONOCYTES 1.4 % (1.0-8.0); PLATELET COUNT 79 thou/uL (150-400); POLYS 95.3 % (36.0-66.0); RDW 15.5 % (10.5-14.5)
[2017-04-24 06:02] LABS: HEMATOCRIT 19.9 % (37.0-47.0)
[2017-04-25] VITALS (12 sets, daily range): BP systolic 114–141; BP diastolic 50–105
[2017-04-25 06:29] LABS: HEMATOCRIT 32.1 % (37.0-47.0); HEMOGLOBIN 10.7 gm/dL (12.0-15.0); MCH 30.7 pg (26.0-34.0); MCHC 33.5 g/dL (28.0-37.0); MCV 91.7 fL (80.0-100.0); RBC 3.5 mil/uL (4.20-5.00); RDW 17.6 % (10.5-14.5); WBC 11.5 thou/uL (4.0-11.0)
[2017-04-25 06:42] LABS: CREATININE 0.7 mg/dL (0.6-1.0); POTASSIUM 3.6 mmol/L (3.5-5.1); TOTAL BILIRUBIN 0.5 mg/dL (<0.1-1.0); TOTAL PROTEIN 5.9 g/dL (6.4-8.2)
[2017-04-26 08:07] LABS: GLOMERULR BASEM MEMBRN AB 8 units (0-20)
[2017-04-27 01:08] LABS: ADENOVIRUS Negative (Negative); INFLUENZA A Negative (Negative); INFLUENZA B Positive (Negative); METAPNEUMOVIRUS Negative (Negative); PARAINFLUENZA 1 Negative (Negative); PARAINFLUENZA 2 Negative (Negative); PARAINFLUENZA 3 Negative (Negative); RHINOVIRUS Negative (Negative); RSV A Negative (Negative); RSV B Negative (Negative)
== END 2017-04-25 23:52 | DRG 853 ==
LOC: 4E 16:42 → 2N 21:52 → ICU 04-23 13:46
PROVIDERS: Hospitalist; Internal Medicine; Internal Medicine Endocrinology, Diabetes & Metabolism; Internal Medicine Pulmonary Disease; Internal Medicine Rheumatology; Nurse Practitioner Acute Care; Specialist
PROC: 02HV33Z Insertion of Infusion Device into Superior Vena Cava, Percutaneous Approach (ICD-10-PCS; principal; 2017-04-11)
PROC: 0KB Muscles, Excision (ICD-10-PCS; 2017-04-12)
PROC: 0DH68UZ Insertion of Feeding Device into Stomach, Via Natural or Artificial Opening Endoscopic (ICD-10-PCS; 2017-04-15)
PROC: 30233N1 Transfusion of Nonautologous Red Blood Cells into Peripheral Vein, Percutaneous Approach (ICD-10-PCS; 2017-04-24)
DX: A41.89 Other specified sepsis (principal); E43 Unspecified severe protein-calorie malnutrition; I26.99 Other pulmonary embolism without acute cor pulmonale; J96.00 Acute respiratory failure, unspecified whether with hypoxia or hypercapnia; M33.90 Dermatopolymyositis, unspecified, organ involvement unspecified; N17.9 Acute kidney failure, unspecified; I47.1 Supraventricular tachycardia; I82.611 Acute embolism and thrombosis of superficial veins of right upper extremity; E87.0 Hyperosmolality and hypernatremia; D62 Acute posthemorrhagic anemia; K92.2 Gastrointestinal hemorrhage, unspecified; I12.0 Hypertensive chronic kidney disease with stage 5 chronic kidney disease or end stage renal disease; R65.20 Severe sepsis without septic shock; L89.322 Pressure ulcer of left buttock, stage 2; M19.90 Unspecified osteoarthritis, unspecified site; E03.9 Hypothyroidism, unspecified; E78.5 Hyperlipidemia, unspecified; R74.0 Nonspecific elevation of levels of transaminase and lactic acid dehydrogenase [LDH]; J38.3 Other diseases of vocal cords; K21.9 Gastro-esophageal reflux disease without esophagitis; E87.6 Hypokalemia; N18.9 Chronic kidney disease, unspecified; F41.9 Anxiety disorder, unspecified; D72.829 Elevated white blood cell count, unspecified; R13.13 Dysphagia, pharyngeal phase; F32.9 Major depressive disorder, single episode, unspecified; I48.91 Unspecified atrial fibrillation; X58.XXXA Exposure to other specified factors, initial encounter; T38.0X5A Adverse effect of glucocorticoids and synthetic analogues, initial encounter; K59.00 Constipation, unspecified; S00.412A Abrasion of left ear, initial encounter; Z79.899 Other long term (current) drug therapy; D69.6 Thrombocytopenia, unspecified; Z66 Do not resuscitate; J10.1 Influenza due to other identified influenza virus with other respiratory manifestations; N30.90 Cystitis, unspecified without hematuria; B96.89 Other specified bacterial agents as the cause of diseases classified elsewhere; Z51.5 Encounter for palliative care; Z23 Encounter for immunization; Z88.2 Allergy status to sulfonamides; Z82.49 Family history of ischemic heart disease and other diseases of the circulatory system; Z82.61 Family history of arthritis; Y93.89 Activity, other specified; Z90.49 Acquired absence of other specified parts of digestive tract; Y99.8 Other external cause status; Z86.718 Personal history of other venous thrombosis and embolism; Y92.89 Other specified places as the place of occurrence of the external cause; Z68.33 Body mass index [BMI] 33.0-33.9, adult
CPT/HCPCS: 10078; 10081; 27000; 50010; 50101; 50386; 50403; 51477; 54118; 56525; 56526; 62110; 62850; 62900; 70005